=== PATIENT | female | born 1940 | race Caucasian/White ===

== ENCOUNTER 2018-11-04 05:20 | Inpatient (IN) | payer MEDICARE, OTHER ==
[2018-10-29 14:18] LABS: BASOPHILS % (AUTO) 0.1 % (0-1); EOSINOPHILS # (AUTO) 0.1 X10'3 (0-0.9); EOSINOPHILS % (AUTO) 1.7 % (0-6); LYMPHOCYTES # (AUTO) 1.1 X10'3 (1.1-4.8); LYMPHOCYTES % (AUTO) 21.7 % (21-51); MEAN CORPUSCULAR HEMOGLOBIN 31.9 PG (27.0-31.0); MEAN CORPUSCULAR HGB CONC 33.3 % (33.0-36.5); MEAN CORPUSCULAR VOLUME 95.7 FL (78-98); MEAN PLATELET VOLUME 9.1 FL (7.4-10.4); MONOCYTES # (AUTO) 0.3 X10'3 (0-0.9); MONOCYTES % (AUTO) 5.1 % (2-12); NEUTROPHILS # (AUTO) 3.7 X10'3 (1.8-7.7); NEUTROPHILS % (AUTO) 71.4 % (42-75); PRE OP HEMATOCRIT 39.3 % (35.0-45.0); PRE OP HEMOGLOBIN 13.1 g/dL (12.0-16.0); PRE OP PLATELET COUNT 197 X10'3 (140-440); RED BLOOD COUNT 4.11 X10'6 (4.20-5.60); RED CELL DISTRIBUTION WIDTH 14.2 % (11.5-14.5)
[2018-10-29 14:24] LABS: PRE OP INR 1.1 INR; PRE OP PROTIME 10.8 SECONDS (9.0-12.0)
[2018-10-29 14:32] LABS: ALBUMIN 3.8 G/DL (3.4-5.0); ALBUMIN/GLOBULIN RATIO 1.2 (1.1-1.5); ALKALINE PHOSPHATASE 113 IU/L (46-116); BLOOD UREA NITROGEN 9 MG/DL (7-18); CALCIUM 9.4 MG/DL (8.5-10.1); CHLORIDE 101 MMOL/L (99-107); PRE OP ALT 33 U/L (30-65); PRE OP ANION GAP 9 (8-16); PRE OP AST 21 U/L (10-37); PRE OP BILIRUB, TOTAL 0.2 MG/DL (0.0-1.0); PRE OP POTASSIUM 3.4 MMOL/L (3.4-5.1); PRE OP SODIUM 141 MMOL/L (135-145); TOTAL PROTEIN 7.1 G/DL (6.4-8.2); eGFR 60 ML/MIN
[2018-10-29 14:34] LABS: PRE OP GLUCOSE 107 MG/DL (70-104)
[~2018-11-04] VITALS: Ht 165.1 cm; Wt 64.8 kg
[2018-11-04] VITALS (28 sets, daily range): BP systolic 86–143; BP diastolic 40–143
[~2018-11-04 05:20] MED LIST: ASPI-1265 PO; LEVO75TA PO; LOSA25TA96 PO; PRIM50TA42 PO; QUET25TA PO; TIOT18CA3 IH; ringers solution, lacted 1,000 ML IV SCH
[2018-11-04] MEDS ORDERED: gabapentin 300mg capsule PO ONE (05:30)
[2018-11-04] MEDS ORDERED: VANCOMYCIN INJ 1000 MG in NORMAL SALINE 250ml IV.SOLN IV ONE (05:30)
[2018-11-04] MEDS ORDERED: albuterol 2.5 MG/3 ML nebule NEB ONE (05:30)
[2018-11-04] MEDS ORDERED: metoclopramide 5 mg/ml inj IV ONE (05:30)
[2018-11-04] MEDS ORDERED: famotidine 20mg tablet PO ONE (05:30)
[2018-11-04] MEDS ORDERED: cefazolin/dext.iso 2gm/100 ML IV ONE (05:30)
[2018-11-04] MEDS ORDERED: acetaminophen 325mg tablet PO ONE (05:30)
[2018-11-04] MEDS ORDERED: tranexamic acid inj. 1,000 MG in normal saline 100 ML IV ONE (05:30)
[2018-11-04] MEDS ORDERED: LIDOcaine 1% (10mg/ml) 2ml vial ONE (05:57)
[2018-11-04] MEDS ORDERED: tetracaine 1% (10mg/ml) pres. free inj. ONE (07:16)
[2018-11-04] MEDS ORDERED: morphine 10mg/ml inj. ONE (07:18)
[2018-11-04] MEDS ORDERED: MIDAZolam 5mg/5ml vial ONE (07:18)
[2018-11-04] MEDS ORDERED: fentaNYL/PF 50MCG/1 ML 2ML syringe ONE (07:18)
[2018-11-04] MEDS ORDERED: morphine /PF 1mg/ml 10ml inj. ONE (07:19)
[2018-11-04] MEDS ORDERED: BUPIVAcaine/PF 7.5mg/ml (0.75%) 10ml vial ONE (07:22)
[2018-11-04] MEDS ORDERED: vancomycin 1,000mg inj ONE (07:25)
[2018-11-04] MEDS ORDERED: ceFAZolin 1000mg inj ONE (07:25)
[2018-11-04] MEDS ORDERED: Thrombin (Bovine) 5,000 unit vial TP ONE (07:38)
[2018-11-04] MEDS ORDERED: LIDOcaine 1%/PF 5ML 10 MG/ML VIAL ONE (07:56)
[2018-11-04] MEDS ORDERED: propofol inj 20 ML IV ONE (07:56)
[2018-11-04] MEDS ORDERED: diphenhydrAMINE 50 mg/ml inj ONE (08:03)
[2018-11-04] MEDS ORDERED: ROPIVAcaine inj 200 MG, epiNEPHrine inj 0.6 MG, morphine 10mg/ml inj. 5 MG in normal sa... IU ONE (08:15)
[2018-11-04] MEDS ORDERED: ROPIVAcaine 0.5% (5mg/ml) 30ml vial ONE ×2 (08:22→09:20)
[2018-11-04] MEDS ORDERED: dexamethasone sod phosphate 4mg/ml inj. ONE (08:22)
[2018-11-04] MEDS ORDERED: calcium chloride 100 MG/1 ML inj IV ONE (08:49)
[2018-11-04] MEDS ORDERED: ringers solution, lacted 1,000 ML IV SCH (09:09)
[2018-11-04] MEDS ORDERED: naloxone 2mg/2ml inj 1.2 MG in normal saline 500ml IV soln 500 ML IV PRN (09:09)
[2018-11-04] MEDS ORDERED: HYDROmorphone inj. 0.5 MG/0.5 ML DISP.SYRIN IV PRN ×2 (09:10→09:40)
[2018-11-04] MEDS ORDERED: ondansetron/PF 4mg/2ml inj IV PRN ×3 (09:10→09:40)
[2018-11-04] MEDS ORDERED: morphine 4 MG/ML inj SYRINge IV PRN (09:10)
[2018-11-04] MEDS ORDERED: diphenhydrAMINE 50 mg/ml inj IV PRN (09:10)
[2018-11-04] MEDS ORDERED: magnesium hydroxide 30ml (MOM) UD suspension PO PRN (09:40)
[2018-11-04] MEDS ORDERED: diphenhydrAMINE 25mg capsule PO PRN ×2 (09:40)
[2018-11-04] MEDS ORDERED: bisacodyl 10mg suppository rectal RC PRN (09:40)
[2018-11-04] MEDS ORDERED: tranexamic acid inj. 0 MG in normal saline 100ml IV soln 100 ML IV ONE (09:40)
[2018-11-04] MEDS ORDERED: acetaminophen 325mg tablet PO PRN (09:40)
--- NOTE | 2018-11-04 10:13 | NUR ---
Received from OR via BED, accompanied by Anesthesiologist DR LAUREN and report given by Anesthesiologist. PT LEFT KNEE W/DRSG, TRIPP DRAIN, LEG WRAP AND ICE PACK CDI, ADDUCTOR CANAL CATHETER AND SHAW CATHETER, PT DROWSY BUT APPROPRIATE, DENIES PAIN, DERMATONE LEVEL L-1. X RAY OBTAINED. Addendum: 11/04/18 at 1103 by April Montano RN Amended: Links added.
[2018-11-04] MEDS: ROPIVACAINE HCL/PF PAIN PUMP 400 ML IJ SCH (10:33)
[2018-11-04] MEDS ORDERED: albumin (Human) 5% 250ml 250 ML IV ONE (12:30)
--- NOTE | 2018-11-04 13:00 | NUR ---
received report from bere rn
--- NOTE | 2018-11-04 13:18 | NUR ---
Report called to receiving nurse. Transferred via BED, 1 BAG OF PT Belongings AND LOWER DENTURES SENT W/PT TO ROOM 401, ROUSTABOUT CREW PUSHER AT BEDSIDE TO RECEIVE PT. Special Issues communicated to receiving nurse. YES. Addendum: 11/04/18 at 1327 by April Montano RN Amended: Links added.
--- NOTE | 2018-11-04 13:24 | NUR ---
pt arrived on floor in ortho bed sleepy
[2018-11-04] MEDS: gabapentin 300mg capsule PO SCH ×2 (13:41→21:01)
[2018-11-04] MEDS: acetaminophen 325mg tablet PO SCH ×2 (13:41→21:01)
--- NOTE | 2018-11-04 13:47 | NUR ---
scanner on computer not working, checked meds prior to admin
[2018-11-04] MEDS: ceFAZolin 1GM/D5W- ADD-VANTAGE 50 ML IV SCH (15:28)
[2018-11-04] MEDS: potassium cl 20mEq in 1/2 NS 1,000 ML IV SCH ×2 (15:30→17:40)
[2018-11-04] MEDS ORDERED: ipratropium 0.5 MG/2.5ML nebule IH PRN (16:15)
--- NOTE | 2018-11-04 18:26 | NUR ---
PATIENT REPORT RECEIVED FROM MARY RICE.
--- NOTE | 2018-11-04 18:26 | NUR ---
gave report to victorino dorantes rn
[2018-11-04] MEDS ORDERED: vancomycin/NS 1 GM ADD-VANTAGE 250 ML IV SCH (20:00)
[2018-11-04] MEDS: sennosides 8.6mg tablet PO SCH (21:00)
[2018-11-04] MEDS: QUEtiapine 25mg tablet PO SCH (21:01)
[2018-11-04] MEDS: losartan 25mg tablet PO SCH (21:01)
[2018-11-04] MEDS: primidone 50mg tablet PO SCH (21:01)
[2018-11-05] VITALS (7 sets, daily range): BP systolic 107–146; BP diastolic 41–66
[2018-11-05] MEDS: ceFAZolin 1GM/D5W- ADD-VANTAGE 50 ML IV SCH (00:08)
[2018-11-05] MEDS: acetaminophen 325mg tablet PO SCH ×4 (02:18→20:28)
[2018-11-05] MEDS: potassium cl 20mEq in 1/2 NS 1,000 ML IV SCH ×3 (02:31→17:40)
[2018-11-05 06:15] LABS: ANION GAP 8 (8-16); CHLORIDE 106 MMOL/L (99-107); POTASSIUM 4.3 MMOL/L (3.5-5.1); SODIUM 139 MMOL/L (135-145)
[2018-11-05 06:16] LABS: BASOPHILS % (AUTO) 0.1 % (0-1); EOSINOPHILS # (AUTO) 0.1 X10'3 (0-0.9); EOSINOPHILS % (AUTO) 1.7 % (0-6); HEMATOCRIT 25.9 % (35.0-45.0); HEMOGLOBIN 8.7 g/dl (12.0-16.0); LYMPHOCYTES % (AUTO) 25.3 % (21-51); MEAN CORPUSCULAR HEMOGLOBIN 32.3 PG (27.0-31.0); MEAN CORPUSCULAR HGB CONC 33.6 % (33.0-36.5); MEAN PLATELET VOLUME 9.1 FL (7.4-10.4); MONOCYTES # (AUTO) 0.4 X10'3 (0-0.9); MONOCYTES % (AUTO) 9.1 % (2-12); NEUTROPHILS # (AUTO) 2.6 X10'3 (1.8-7.7); NEUTROPHILS % (AUTO) 63.8 % (42-75); PLATELET COUNT 125 X10'3 (140-440); RED CELL DISTRIBUTION WIDTH 13.5 % (11.5-14.5); WHITE BLOOD COUNT 4.1 X10'3 (4.5-11.0)
--- NOTE | 2018-11-05 06:30 | NUR ---
Patient in room ORTHO 4014. I have received report from KRISS Campbell RN and had the opportunity to ask questions and assume patient care.
--- NOTE | 2018-11-05 06:33 | NUR ---
PATIENT REPORT GIVEN TO ARNALDO RICE.
[2018-11-05] MEDS: primidone 50mg tablet PO SCH ×2 (07:10→20:28)
[2018-11-05] MEDS: levoTHYROXINE 75mcg tablet PO SCH (07:10)
[2018-11-05] MEDS: gabapentin 300mg capsule PO SCH ×3 (07:10→20:28)
[2018-11-05] MEDS: oxyCODONE IR 5mg (immed. release) tablet PO PRN ×3 (07:27→17:20)
--- NOTE | 2018-11-05 09:00 | NUR ---
Increased ON-Q from 8ml/hr to 10ml/hr due to increased pain level of 7 out of 10
[2018-11-05] MEDS ORDERED: ASPI-1 PO (09:10)
[2018-11-05] MEDS: aspirin 325mg tablet PO SCH (11:56)
--- NOTE | 2018-11-05 12:12 | NUR ---
Increased ON-Q pump from 10ml/hr to 12ml/hr due to increased pain of 7 out of 10
--- NOTE | 2018-11-05 14:00 | NUR ---
Increased ON-Q pump from 12ml/hr to 14ml/hr due to increased pain of 7 out of 10
--- NOTE | 2018-11-05 16:33 | NUR ---
Josette 11/09 ^ pro ed done Written high protein education handout provided with verbal review r/t wound heal. Addendum: 11/05/18 at [address] Amended: Links added.
[2018-11-05] MEDS ORDERED: primidone 50mg tablet PO PRN (16:45)
--- NOTE | 2018-11-05 18:00 | NUR ---
Problems reprioritized. Patient report given, questions answered & plan of care reviewed with Anette RICE.
--- NOTE | 2018-11-05 18:26 | NUR ---
Patient in room ORTHO 4014. I have received report from Clemencia RICE and had the opportunity to ask questions and assume patient care.
--- NOTE | 2018-11-05 19:10 | NUR ---
Patient was found on the floor in the bathroom. Patient stated she stood up with FWW without assistance and her knees gave out. Was found with both legs straight out and her back was to the toilet. Assessed the surgical knee with no new bleeding or bruising. Patient complained of some back pain. No open areas or bruising to the back. Vitals taken. Patient assisted back to bed. Bed alarm placed for safety.
--- NOTE | 2018-11-05 19:30 | NUR ---
I notified Dr. Zimmer that his patient had fallen in the bathroom. She was found sitting on her bottom with both legs extended out. No open area, bruise or abrasion noted. She is c/o of upper back pain where she hit the toilet on falling to ground and I informed this to the doctor. The surgical site does not look any different to the nurse taking care of the patient.
--- NOTE | 2018-11-05 20:22 | NUR ---
I talked to the director of our floor regarding the fall and he requested we move the patient to a room close by the nurse's station for close observation. I also informed him that I placed the bed alarm on the patient once we got her back to bed.
[2018-11-05] MEDS: losartan 25mg tablet PO SCH (20:28)
[2018-11-05] MEDS: sennosides 8.6mg tablet PO SCH (20:28)
[2018-11-05] MEDS: QUEtiapine 25mg tablet PO SCH (20:29)
--- NOTE | 2018-11-05 20:30 | NUR ---
I informed the nursing heavy equipment supervisor of the fall.
--- NOTE | 2018-11-05 22:20 | NUR ---
Moved patient closer to nurses station. Bed alarm on. Bed locked & low. Assessed surgical knee with no new bleeding or bruising. Assessed back area no open areas or bruising at this time. will continue to monitor. Daughter Called for update on her mother and was informed of the fall. Daughter (Dara) left her number to call if any new issues arise. [place] [phone]. Addendum: 11/06/18 at 0008 by Anette Tucker RN Not Maureen. Lewis is daughters name.
[2018-11-06 02:00] VITALS: BP 141/51
[2018-11-06] MEDS: acetaminophen 325mg tablet PO SCH ×2 (02:57→07:10)
[2018-11-06] MEDS: oxyCODONE IR 5mg (immed. release) tablet PO PRN (05:24)
[2018-11-06 06:00] VITALS: BP 139/53
--- NOTE | 2018-11-06 06:00 | NUR ---
Patient in room ORTHO 4008. I have received report from Anette RICE and had the opportunity to ask questions and assume patient care.
--- NOTE | 2018-11-06 06:30 | NUR ---
Problems reprioritized. Patient report given, questions answered & plan of care reviewed with Clemencia RICE.
[2018-11-06 06:47] LABS: BASOPHILS % (AUTO) 0.1 % (0-1); EOSINOPHILS % (AUTO) 0.5 % (0-6); HEMATOCRIT 24.5 % (35.0-45.0); HEMOGLOBIN 8.4 g/dl (12.0-16.0); LYMPHOCYTES # (AUTO) 0.7 X10'3 (1.1-4.8); LYMPHOCYTES % (AUTO) 12.1 % (21-51); MEAN CORPUSCULAR HEMOGLOBIN 32.8 PG (27.0-31.0); MEAN CORPUSCULAR HGB CONC 34.3 % (33.0-36.5); MEAN CORPUSCULAR VOLUME 95.6 FL (78-98); MEAN PLATELET VOLUME 9.6 FL (7.4-10.4); MONOCYTES # (AUTO) 0.5 X10'3 (0-0.9); MONOCYTES % (AUTO) 7.8 % (2-12); NEUTROPHILS # (AUTO) 4.9 X10'3 (1.8-7.7); NEUTROPHILS % (AUTO) 79.5 % (42-75); PLATELET COUNT 115 X10'3 (140-440); RED BLOOD COUNT 2.56 X10'6 (4.20-5.60); RED CELL DISTRIBUTION WIDTH 13.6 % (11.5-14.5); WHITE BLOOD COUNT 6.1 X10'3 (4.5-11.0)
[2018-11-06] MEDS: gabapentin 300mg capsule PO SCH ×3 (07:10→20:30)
[2018-11-06] MEDS: levoTHYROXINE 75mcg tablet PO SCH (07:10)
[2018-11-06] MEDS: primidone 50mg tablet PO SCH ×2 (07:10→20:30)
[2018-11-06] MEDS: ROPIVACAINE HCL/PF PAIN PUMP 400 ML IJ SCH ×2 (09:09→12:27)
[2018-11-06] MEDS ORDERED: acetaminophen 325mg tablet PO PRN (09:40)
[2018-11-06 10:00] VITALS: BP 106/46
--- NOTE | 2018-11-06 10:10 | NUR ---
Patient formed blister under Tegaderm of TRIPP dressing. I contacted Dr. Zimmer, he instructed me to remove dressing, put xeroform over blisters and gauze over surgical incision, then kerlex wrap over it. This dressing was changed at 11:15
[2018-11-06] MEDS: aspirin 325mg tablet PO SCH (12:30)
[2018-11-06 18:00] VITALS: BP 113/47
--- NOTE | 2018-11-06 18:05 | NUR ---
Problems reprioritized. Patient report given, questions answered & plan of care reviewed with Hodan RICE.
--- NOTE | 2018-11-06 18:55 | NUR ---
Patient in room ORTHO 4008. I have received report from KRYSTAL Khanna and had the opportunity to ask questions and assume patient care.
[2018-11-06] MEDS: sennosides 8.6mg tablet PO SCH (20:30)
[2018-11-06] MEDS: losartan 25mg tablet PO SCH (20:30)
[2018-11-06] MEDS: QUEtiapine 25mg tablet PO SCH (20:30)
[2018-11-06 20:34] VITALS: BP 138/61
--- NOTE | 2018-11-06 20:59 | NUR ---
Late entry for date of 11/05/18 regarding pt's fall in the bathroom. Patient stated that she pulled the bathroom call light for help before she got up on her own to her nurse, Anette RICE. When I interviewed all staff if they heard the bathroom call light alarming for room 4014; not one person heard the bathroom call light alarming. We did pull the bathroom call light multiple times after this to test it out and the alarm did sound each time we pulled the string to the call light in the bathroom.
[2018-11-06 22:00] VITALS: BP 135/51
[2018-11-07 06:00] VITALS: BP 110/66
--- NOTE | 2018-11-07 06:00 | NUR ---
Patient in room ORTHO 4008. I have received report from Hodan RICE and had the opportunity to ask questions and assume patient care.
--- NOTE | 2018-11-07 06:07 | NUR ---
Problems reprioritized. Patient report given, questions answered & plan of care reviewed with KRYSTAL Khanna.
[2018-11-07] MEDS: aspirin 325mg tablet PO SCH (07:06)
[2018-11-07] MEDS: gabapentin 300mg capsule PO SCH ×3 (07:07→19:59)
[2018-11-07] MEDS: levoTHYROXINE 75mcg tablet PO SCH (07:07)
[2018-11-07] MEDS: primidone 50mg tablet PO SCH ×2 (07:07→19:59)
[2018-11-07 07:37] LABS: BASOPHILS % (AUTO) 0.1 % (0-1); EOSINOPHILS # (AUTO) 0.1 X10'3 (0-0.9); EOSINOPHILS % (AUTO) 1.1 % (0-6); HEMATOCRIT 22.9 % (35.0-45.0); HEMOGLOBIN 7.8 g/dl (12.0-16.0); LYMPHOCYTES # (AUTO) 1.4 X10'3 (1.1-4.8); LYMPHOCYTES % (AUTO) 22.3 % (21-51); MEAN CORPUSCULAR HEMOGLOBIN 32.4 PG (27.0-31.0); MEAN CORPUSCULAR HGB CONC 33.8 % (33.0-36.5); MEAN CORPUSCULAR VOLUME 95.8 FL (78-98); MEAN PLATELET VOLUME 9.7 FL (7.4-10.4); MONOCYTES # (AUTO) 0.5 X10'3 (0-0.9); MONOCYTES % (AUTO) 7.9 % (2-12); NEUTROPHILS # (AUTO) 4.4 X10'3 (1.8-7.7); NEUTROPHILS % (AUTO) 68.6 % (42-75); PLATELET COUNT 118 X10'3 (140-440); RED BLOOD COUNT 2.39 X10'6 (4.20-5.60); RED CELL DISTRIBUTION WIDTH 13.9 % (11.5-14.5); WHITE BLOOD COUNT 6.4 X10'3 (4.5-11.0)
[2018-11-07 10:00] VITALS: BP 113/45
[2018-11-07] MEDS: oxyCODONE IR 5mg (immed. release) tablet PO PRN (16:18)
[2018-11-07 18:00] VITALS: BP 122/48
[2018-11-07] MEDS: sennosides 8.6mg tablet PO SCH (19:58)
[2018-11-07] MEDS: QUEtiapine 25mg tablet PO SCH (19:58)
[2018-11-07] MEDS: losartan 25mg tablet PO SCH (19:59)
[2018-11-07 22:00] VITALS: BP 101/33
--- NOTE | 2018-11-08 02:37 | NUR ---
Report given to Nisha RICE
--- NOTE | 2018-11-08 03:00 | NUR ---
ASSUMED CARE OF PATIENT , IS SLEEPING, RESP EVEN AND DEEP, SKIN WARM AND DRY, PALE PINK IN COLOR Addendum: 11/08/18 at 0401 by Nisha Bro RN Amended: Links added.
--- NOTE | 2018-11-08 06:39 | NUR ---
RECEIVED REPORT FROM JUDI RICE
[2018-11-08 07:03] VITALS: BP 120/51
[2018-11-08] MEDS: gabapentin 300mg capsule PO SCH (08:01)
[2018-11-08] MEDS: primidone 50mg tablet PO SCH (08:01)
[2018-11-08] MEDS: levoTHYROXINE 75mcg tablet PO SCH (08:01)
[2018-11-08] MEDS: aspirin 325mg tablet PO SCH (08:02)
[2018-11-08] MEDS: ROPIVACAINE HCL/PF PAIN PUMP 400 ML IJ SCH (09:09)
[2018-11-08] MEDS: oxyCODONE IR 5mg (immed. release) tablet PO PRN (11:09)
--- NOTE | 2018-11-08 14:41 | NUR ---
patient was discharged iv and tele was removed from patient. Patient was alert and oriented at time of discharge. Patient was very happy yo go home. spoke to dr. monteiro and he stated that she could go home and that there was nothing that could be done to the shoulder.
== END 2018-11-08 13:15 | disposition home or self-care (01) | DRG 470 ==
LOC: PAS IN 05:20 → EDSTATUS 08:30 → ORTHO 4S 13:24
PROVIDERS: ADMIT Orthopaedic Surgery; ATTEND Orthopaedic Surgery
PROC: 3E0T3BZ Introduction of Anesthetic Agent into Peripheral Nerves and Plexi, Percutaneous Approach (ICD-10-PCS; 2018-11-04)
PROC: 0SRD0J9 Replacement of Left Knee Joint with Synthetic Substitute, Cemented, Open Approach (ICD-10-PCS; principal; 2018-11-04 07:33)
DX: M17.12 Unilateral primary osteoarthritis, left knee (principal); D62 Acute posthemorrhagic anemia; I25.10 Atherosclerotic heart disease of native coronary artery without angina pectoris; F41.8 Other specified anxiety disorders; J44.9 Chronic obstructive pulmonary disease, unspecified; I10 Essential (primary) hypertension; K21.9 Gastro-esophageal reflux disease without esophagitis; E03.9 Hypothyroidism, unspecified; G89.29 Other chronic pain; M25.562 Pain in left knee; I48.91 Unspecified atrial fibrillation; S42.101A Fracture of unspecified part of scapula, right shoulder, initial encounter for closed fracture; W18.12XA Fall from or off toilet with subsequent striking against object, initial encounter; Y93.89 Activity, other specified; Y92.231 Patient bathroom in hospital as the place of occurrence of the external cause; M19.011 Primary osteoarthritis, right shoulder
CPT/HCPCS: 36415; 71046; 72110; 73010; 73560; 80051; 80053; 84443; 85025; 85610; 85730; 87070; 94760; 97110; 97116; 97161; 97530; A6455; A7000; C1713; C1758; C1776; G0378; J0171; J0690; J1100; J1200; J2001; J2250; J2270; J2274; J2704; J2765; J2795; J3010; J3370; J3490; J7030; J7120; P9045

== ENCOUNTER 2020-09-26 14:46 | Inpatient (IN) | payer MEDICARE, OTHER ==
[~2020-09-26] VITALS: Ht 165.1 cm; Wt 58.1 kg
[~2020-09-26 14:46] MED LIST changes: +ASPI-1 PO; -ASPI-1265 PO; +PRIM50TA3 PO; -PRIM50TA42 PO; -ringers solution, lacted 1,000 ML IV SCH
[2020-09-26 15:42] LABS: BASOPHILS % (AUTO) 0.5 % (0-1); EOSINOPHILS # (AUTO) 0.1 X10'3 (0-0.9); HEMATOCRIT 38.8 % (35.0-45.0); LYMPHOCYTES # (AUTO) 1.2 X10'3 (1.1-4.8); LYMPHOCYTES % (AUTO) 26.3 % (21-51); MEAN CORPUSCULAR HEMOGLOBIN 31.7 PG (27.0-31.0); MEAN CORPUSCULAR HGB CONC 33.5 g/dL (33.0-36.5); MEAN CORPUSCULAR VOLUME 94.7 FL (78-98); MEAN PLATELET VOLUME 9.3 FL (7.4-10.4); MONOCYTES # (AUTO) 0.3 X10'3 (0-0.9); MONOCYTES % (AUTO) 5.7 % (2-12); NEUTROPHILS # (AUTO) 2.9 X10'3 (1.8-7.7); NEUTROPHILS % (AUTO) 65.5 % (42-75); PLATELET COUNT 171 X10'3 (140-440); RED CELL DISTRIBUTION WIDTH 13.9 % (11.5-14.5); WHITE BLOOD COUNT 4.5 X10'3 (4.5-11.0)
[2020-09-26 15:45] LABS: PARTIAL THROMBOPLASTIN TIME 26 SECONDS (22-32)
[2020-09-26 15:47] LABS: ALKALINE PHOSPHATASE 117 IU/L (46-116)
[2020-09-26 15:50] LABS: ALANINE AMINOTRANSFERASE 41 U/L (12-78); ALBUMIN 3.7 G/DL (3.4-5.0); ALBUMIN/GLOBULIN RATIO 1.1 (1.1-1.5); ANION GAP 6 (8-16); ASPARTATE AMINO TRANSFERASE 30 U/L (10-37); BILIRUBIN,TOTAL 0.2 MG/DL (0.1-1.0); BLOOD UREA NITROGEN 6 MG/DL (7-18); BUN/CREATININE RATIO 6.1 (6.6-38.0); CALCIUM 9.2 MG/DL (8.5-10.1); CHLORIDE 106 MMOL/L (99-107); CREATININE 0.98 MG/DL (0.40-0.90); GLUCOSE 113 MG/DL (70-104); SODIUM 144 MMOL/L (135-145); TOTAL CARBON DIOXIDE 32.4 MMOL/L (24-32); TROPONIN I < 0.04 NG/ML (0.0-0.05); eGFR 54 ML/MIN
[2020-09-26] MEDS ORDERED: QUET25TA34 PO (16:54)
[2020-09-26] MEDS ORDERED: LEVO75TA7 PO (16:54)
[2020-09-26] MEDS ORDERED: LOSA50TA64 PO (16:54)
[2020-09-26] MEDS ORDERED: ATOR20TA66 PO (16:54)
[2020-09-26] MEDS ORDERED: PRIM50TA27 PO (16:54)
[2020-09-26] MEDS ORDERED: mag hydrox/Alum hydrox/simeth 30ml oral suspension PO PRN (17:00)
[2020-09-26] MEDS ORDERED: magnesium hydroxide 30ml (MOM) UD suspension PO PRN (17:00)
[2020-09-26] MEDS ORDERED: acetaminophen 325mg tablet PO PRN (17:00)
[2020-09-26] MEDS ORDERED: ondansetron/PF 4mg/2ml inj IV PRN (17:00)
[2020-09-26 17:28] LABS: CHOL/HDL RATIO 2.1 (0.00-4.99); CHOLESTEROL 111 MG/DL (0-200); HDL CHOLESTEROL 52 MG/DL (35-60); LDL CHOLESTEROL 49 MG/DL (50-100); TRIGLYCERIDES 97 MG/DL (20-135)
[2020-09-26] MEDS: normal saline 1000ml 1,000 ML IV SCH (17:32)
--- NOTE | 2020-09-26 18:30 | NUR ---
Pt resting in bed, vascular in with pt. vitals taken
[2020-09-26] MEDS ORDERED: primidone 50mg tablet PO SCH (20:00)
[2020-09-26] MEDS ORDERED: QUEtiapine 25mg tablet PO SCH (21:00)
[2020-09-26] MEDS ORDERED: TIOT4MIS5 (21:06)
[2020-09-26] MEDS ORDERED: ASPI-1265 PO (21:06)
[2020-09-26] MEDS ORDERED: QUET25TA PO (21:06)
[2020-09-26] MEDS: heparin, porcine 5000 units/ml vial SQ SCH (22:02)
[2020-09-26 22:11] VITALS: BP 168/64
[2020-09-26] MEDS ORDERED: primidone 50mg tablet PO PRN (23:00)
[2020-09-27 02:00] VITALS: BP 146/56
[2020-09-27] MEDS: normal saline 1000ml 1,000 ML IV SCH ×2 (04:43→13:29)
[2020-09-27 06:00] VITALS: BP 143/62
--- NOTE | 2020-09-27 06:30 | NUR ---
Report given to Isrrael RICE.
[2020-09-27 06:55] LABS: BASOPHILS % (AUTO) 0.4 % (0-1); EOSINOPHILS # (AUTO) 0.1 X10'3 (0-0.9); EOSINOPHILS % (AUTO) 3.1 % (0-6); HEMATOCRIT 37.8 % (35.0-45.0); HEMOGLOBIN 12.7 g/dl (12.0-16.0); LYMPHOCYTES # (AUTO) 1.3 X10'3 (1.1-4.8); LYMPHOCYTES % (AUTO) 36.5 % (21-51); MEAN CORPUSCULAR HEMOGLOBIN 31.4 PG (27.0-31.0); MEAN CORPUSCULAR HGB CONC 33.6 g/dL (33.0-36.5); MEAN CORPUSCULAR VOLUME 93.6 FL (78-98); MEAN PLATELET VOLUME 9.4 FL (7.4-10.4); MONOCYTES # (AUTO) 0.2 X10'3 (0-0.9); MONOCYTES % (AUTO) 6.4 % (2-12); NEUTROPHILS # (AUTO) 1.9 X10'3 (1.8-7.7); NEUTROPHILS % (AUTO) 53.6 % (42-75); PLATELET COUNT 142 X10'3 (140-440); RED BLOOD COUNT 4.04 X10'6 (4.20-5.60); RED CELL DISTRIBUTION WIDTH 13.7 % (11.5-14.5); WHITE BLOOD COUNT 3.6 X10'3 (4.5-11.0)
[2020-09-27 07:10] LABS: ALBUMIN 3.3 G/DL (3.4-5.0); ANION GAP 7 (8-16); BLOOD UREA NITROGEN 10 MG/DL (7-18); BUN/CREATININE RATIO 11.8 (6.6-38.0); CALCIUM 9.1 MG/DL (8.5-10.1); CHLORIDE 110 MMOL/L (99-107); CREATININE 0.85 MG/DL (0.40-0.90); POTASSIUM 3.9 MMOL/L (3.5-5.1); SODIUM 146 MMOL/L (135-145); TOTAL CARBON DIOXIDE 28.7 MMOL/L (24-32); eGFR 64 ML/MIN
[2020-09-27 07:15] LABS: GLUCOSE 88 MG/DL (70-104)
[2020-09-27] MEDS ORDERED: levoTHYROXINE 75mcg tablet PO SCH (07:30)
[2020-09-27] MEDS ORDERED: losartan 50mg tablet PO SCH ×2 (08:00→21:00)
[2020-09-27] MEDS ORDERED: atorvastatin 20mg tablet PO SCH ×2 (08:00→21:00)
[2020-09-27] MEDS ORDERED: aspirin 81mg tablet.DR PO SCH ×2 (08:00→21:00)
[2020-09-27] MEDS: heparin, porcine 5000 units/ml vial SQ SCH (08:29)
[2020-09-27 11:00] VITALS: BP 129/57
[2020-09-27 14:00] VITALS: BP 130/45
[2020-09-27] MEDS ORDERED: CLOP75TA15 PO (15:26)
== END 2020-09-27 17:20 | disposition home or self-care (01) | DRG 123 ==
LOC: ER 14:48 → ED HOLD 16:57 → ORTHO 4S 22:08
PROVIDERS: ADMIT Family Medicine; ATTEND Family Medicine
DX: G45.3 Amaurosis fugax (principal); E03.9 Hypothyroidism, unspecified; E78.00 Pure hypercholesterolemia, unspecified; E78.5 Hyperlipidemia, unspecified; I10 Essential (primary) hypertension; I25.10 Atherosclerotic heart disease of native coronary artery without angina pectoris; Z85.118 Personal history of other malignant neoplasm of bronchus and lung; Z86.73 Personal history of transient ischemic attack (TIA), and cerebral infarction without residual deficits; Z87.891 Personal history of nicotine dependence; Z95.1 Presence of aortocoronary bypass graft; Z79.899 Other long term (current) drug therapy
CPT/HCPCS: 36415; 70450; 70544; 70551; 71045; 80048; 80053; 80061; 82948; 84484; 85025; 85610; 85730; 87081; 92508; 92616; 93005; 93306; 93308; 93880; 97161; 97530; 99285; G0378; J1644; J7030

== ENCOUNTER 2021-06-11 08:26 | Emergency (ER) | payer MEDICARE, OTHER ==
[~2021-06-11] VITALS: Ht 165.1 cm; Wt 0.6 kg
[~2021-06-11 08:26] MED LIST changes: -ASPI-1 PO; +ASPI-1265 PO; +ATOR10TA PO; +ESTROVEN PO; +FLAXSEED PO; -LEVO75TA PO; +LEVO75TA7 PO; -LOSA25TA96 PO; +LOSA50TA64 PO; +MARIJUANA; +MULT-1249 PO; +PRIM50TA27 PO; -PRIM50TA3 PO; -TIOT18CA3 IH; +TIOT4MIS5
[2021-06-11 08:45] VITALS: BP 129/61
[2021-06-11 09:16] LABS: BASOPHILS % (AUTO) 0.3 % (0-1); EOSINOPHILS # (AUTO) 0.1 X10'3 (0-0.9); EOSINOPHILS % (AUTO) 2.5 % (0-6); HEMATOCRIT 38.9 % (35.0-45.0); HEMOGLOBIN 12.9 g/dl (12.0-16.0); LYMPHOCYTES # (AUTO) 0.7 X10'3 (1.1-4.8); LYMPHOCYTES % (AUTO) 22.9 % (21-51); MEAN CORPUSCULAR HEMOGLOBIN 31.9 PG (27.0-31.0); MEAN CORPUSCULAR HGB CONC 33.2 g/dL (33.0-36.5); MEAN CORPUSCULAR VOLUME 96.1 FL (78-98); MEAN PLATELET VOLUME 10.2 FL (7.4-10.4); MONOCYTES # (AUTO) 0.2 X10'3 (0-0.9); NEUTROPHILS # (AUTO) 2.1 X10'3 (1.8-7.7); NEUTROPHILS % (AUTO) 68.3 % (42-75); PLATELET COUNT 117 X10'3 (140-440); RED BLOOD COUNT 4.05 X10'6 (4.20-5.60); RED CELL DISTRIBUTION WIDTH 14.2 % (11.5-14.5); WHITE BLOOD COUNT 3.1 X10'3 (4.5-11.0)
[2021-06-11 09:22] LABS: ALBUMIN 3.6 G/DL (3.4-5.0); ANION GAP 5 (8-16); BLOOD UREA NITROGEN 10 MG/DL (7-18); BUN/CREATININE RATIO 10.8 (6.6-38.0); CALCIUM 8.6 MG/DL (8.5-10.1); CHLORIDE 108 MMOL/L (99-107); CREATININE 0.93 MG/DL (0.40-0.90); GLUCOSE 82 MG/DL (70-104); POTASSIUM 4.2 MMOL/L (3.5-5.1); SODIUM 145 MMOL/L (135-145); TOTAL CARBON DIOXIDE 32.4 MMOL/L (24-32); eGFR 58 ML/MIN
[2021-06-11 09:42] LABS: CLARITY,URINE CLEAR (Clear); COLOR,URINE YELLOW (Yellow); GLUCOSE, URINE NEGATIVE (Neg); KETONES,URINE NEGATIVE (Neg); LEUKOCYTE ESTERASE ,URINE TRACE (Neg); NITRITES, URINE NEGATIVE (Neg); OCCULT BLOOD,URINE NEGATIVE (Neg); PROTEIN,URINE NEGATIVE (Neg); UROBILINOGEN,URINE 0.2 E.U/dL (0.2-1.0)
[2021-06-11 09:44] LABS: UA COLLECTION TYPE CLN CATCH MIDSTREAM
[2021-06-11 09:48] LABS: SQUAMOUS EPITHELIAL CELL,UR FEW /LPF (FEW)
[2021-06-11 09:49] LABS: BACTERIA,URINE FEW /HPF (Neg); RBC,URINE 0-2 /HPF (0-2); WBC,URINE 0-4 /HPF (0-4)
== END 2021-06-11 12:00 | disposition home or self-care (01) ==
LOC: ER 08:26
DX: H57.11 Ocular pain, right eye (principal); H57.89 Other specified disorders of eye and adnexa; I25.10 Atherosclerotic heart disease of native coronary artery without angina pectoris; Z95.5 Presence of coronary angioplasty implant and graft; Z79.82 Long term (current) use of aspirin; Z87.891 Personal history of nicotine dependence; Z79.899 Other long term (current) drug therapy; Z88.8 Allergy status to other drugs, medicaments and biological substances
CPT/HCPCS: 36415; 80048; 81001; 85025; 87088; 93005; 99284

== ENCOUNTER 2022-07-09 19:43 | Emergency (ER) | payer MEDICARE, OTHER ==
[~2022-07-09] VITALS: Ht 165.1 cm; Wt 59.5 kg
[2022-07-09 19:49] VITALS: BP 159/63
== END 2022-07-10 00:05 | disposition left against medical advice (07) ==
LOC: ER 19:44
DX: U07.1 COVID-19 (principal)